=== PATIENT | male | born 1975 | race American Indian/Alaskan Native ===

== ENCOUNTER 2016-05-20 11:55 | Emergency (ER) | payer SELFPAY ==
[2016-05-20 12:21] VITALS: BP 124/78
[2016-05-20] MEDS ORDERED: VALIUM PO ONE (17:43)
[2016-05-20] MEDS ORDERED: TORADOL IM ONE (17:43)
--- NOTE | 2016-05-20 19:08 | Emergency Department Report ---
Entered by QING INTERIANO, acting as scribe for IVY WOODY PA. ED Dizziness HPI - General Chief Complaint: Extremity Problem,Nontraumatic Stated Complaint: BLURRED VISION/TINGLING/LIGHT HEADED Time Seen by Provider: 05/20/16 17:23 Source: patient Mode of arrival: Ambulatory Limitations: No Limitations - History of Present Illness Initial Comments: 41 year old male presents to the ED for evaluation of dizziness, nausea, and blurry vision that began this morning at approximately 09:00 while he was at work and lasted approximately 15 minutes. Patient reports symptoms improved after eating and dizziness and blurred vision have since resolved. He also c/o intermittent low back pain for 4-5 months. He states his current back pain in the ED radiates to his legs. He describes his pain in the ED as a tingling sensation and rates his discomfort as 8/10 in severity. He states at its worst, pain is a shooting pain that is 10/10 in severity. Pain worsens with movement and improves with rest. Denies bowel or bladder incontinence. Denies personal Hx of CVA. Denies headache, weakness, numbness, speech changes, chest pain, shortness of breath, abdominal pain, and vomiting. MD Complaint: dizziness -: Sudden, This morning Time: 09:00 Timing: sudden onset, now resolved (after eating) Description: lightheadedness History of Same: No History of Trauma: No Improves With: other (eating) Worsens With: nothing Associated Symptoms: denies: chest pain, confusion, fever/chills, shortness of breath, syncope, weakness - Related Data Previous Rx's Medication Instructions Recorded Last Taken Type oxyCODONE /ACETAMINOPHEN [Percocet 2 tab PO Q6H PRN #14 tablet 04/03/14 Unknown Rx 5/325 mg] Naproxen [Naprosyn] 500 mg PO BID #30 tablet 05/20/16 Unknown Rx methOCARBAMOL [Robaxin TAB] 500 mg PO BID #20 tab 05/20/16 Unknown Rx Allergies Allergy/AdvReac Type Severity Reaction Status Date / Time No Known Allergies Allergy Verified 03/29/14 12:49 ED Review of Systems Comment: All other systems reviewed and negative Constitutional: denies: chills, fever Eyes: vision change (blurry vision, since resolved) Respiratory: denies: shortness of breath Cardiovascular: denies: chest pain Gastrointestinal: nausea. denies: abdominal pain, vomiting Musculoskeletal: back pain (low back pain radiating to bilateral lower extremities, no injury) Neurological: denies: headache, weakness, numbness, paresthesias, confusion, abnormal gait ED Past Medical Hx - Past Medical History Previous Medical History?: Yes - Surgical History Past Surgical History?: Yes Hx Cholecystectomy: Yes - Social History Smoking Status: Never Smoker Substance Use Type: Alcohol, Marijuana - Medications Home Medications: Home Medications Medication Instructions Recorded Confirmed Last Taken Type oxyCODONE /ACETAMINOPHEN [Percocet 2 tab PO Q6H PRN #14 tablet 04/03/14 Unknown Rx 5/325 mg] Naproxen [Naprosyn] 500 mg PO BID #30 tablet 05/20/16 Unknown Rx methOCARBAMOL [Robaxin TAB] 500 mg PO BID #20 tab 05/20/16 Unknown Rx ED Physical Exam - General Limitations: No Limitations General appearance: other (The patient is well-developed and well-nourished. Patient is in NAD. ) - Head Head exam: Present: atraumatic, normocephalic - Eye Eye exam: Present: PERRL, EOMI Pupils: Present: normal accommodation - ENT ENT exam: Present: mucous membranes moist - Neck Neck exam: Present: normal inspection, full ROM (supple). Absent: meningismus, lymphadenopathy, thyromegaly - Respiratory Respiratory exam: Present: normal lung sounds bilaterally. Absent: respiratory distress, wheezes, rales, chest wall tenderness - Cardiovascular Cardiovascular Exam: Present: regular rate, normal rhythm, normal heart sounds. Absent: systolic murmur, diastolic murmur, rubs, gallop - GI/Abdominal GI/Abdominal exam: Present: soft, normal bowel sounds. Absent: distended, tenderness, guarding, rebound - Extremities Exam Extremities exam: Present: normal inspection, full ROM - Back Exam Back exam: Present: normal inspection, full ROM, muscle spasm (bilateral low back), paraspinal tenderness (bilateral low back). Absent: vertebral tenderness - Expanded Back Exam Expanded Back exam: Sciatic Notch Tenderness: Left, Negative Straight Leg Raising: Left, Right - Neurological Exam Neurological exam: Present: alert, oriented X3, CN II-XII intact, normal gait, other (Symmetrical strength and sensation. Cerebellar testing normal. GCS score of 15.). Absent: motor sensory deficit - Expanded Neurological Exam Expanded Patient oriented to: Present: person, place, time Speech: Present: fluid speech Cranial nerves: EOM's Intact: Normal, Facial Sensation: Normal Cerebellar function: Finger to Nose: Normal, Romberg: Normal Upper motor neuron: Pronator Drift: Normal Motor strength exam: RUE: 5, LUE: 5, RLE: 5, LLE: 5 Best Eye Response (Margo): (4) open spontaneously Best Motor Response (Margo): (6) obeys commands Best Verbal Response (Fisher): (5) oriented Margo Total: 15 - Psychiatric Psychiatric exam: Present: normal affect, normal mood - Skin Skin exam: Present: warm, dry, intact ED Course Vital Signs 05/20/16 05/20/16 12:05 18:46 Temperature 98.1 F Pulse Rate 99 H Respiratory 18 16 Rate Blood Pressure 124/78 O2 Sat by Pulse 100 Oximetry ED Medical Decision Making - Lab Data Vital Signs 05/20/16 05/20/16 12:05 18:46 Temperature 98.1 F Pulse Rate 99 H Respiratory 18 16 Rate Blood Pressure 124/78 O2 Sat by Pulse 100 Oximetry - Medical Decision Making 41-year-old male presents today with lower back pain radiating down his left leg as well as one episode of lightheadedness, blurred vision that resolved post meal. Patient was given Valium and Toradol and reported symptomatic relief. He has been provided with a referral for neurologist and orthopedic. Patient is in no acute distress at this time. He will be discharged home and is encouraged to follow up with a primary care provider. He will be sent home on Robaxin and Naprosyn and is encouraged to return to the emergency room for any worsening symptoms. ED Disposition Clinical Impression: Low back pain Qualifiers: Chronicity: acute Back pain laterality: bilateral Sciatica presence: with sciatica Sciatica laterality: sciatica of left side Qualified Code(s): M54.42 - Lumbago with sciatica, left side Disposition: DISCHARGED TO HOME OR SELFCARE Is pt being admited?: No Does the pt Need Aspirin: No Condition: Stable Instructions: Sciatica (ED) Additional Instructions: Follow-up with primary care provider. Return to the emergency department if symptoms worsen. Prescriptions: methOCARBAMOL [Robaxin TAB] 500 mg PO BID #20 tab Naproxen [Naprosyn] 500 mg PO BID #30 tablet Referrals: PRIMARY CARE, [Primary Care Provider] - 3-5 Days SERAFIN REYNAGA MD [Staff Physician] - 3-5 Days SILAS GARCIA MD [Staff Physician] - 3-5 Days Forms: Work/School Release Form(ED), Accompanied Note Time of Disposition: 19:06 This documentation as recorded by the sendyibLAISHA patton REBEKAH,accurately reflects the service I personally performed and the decisions made by ,IVY WOODY PA.
== END 2016-05-20 19:19 | disposition home or self-care (01) ==
LOC: ED 11:55
DX: M54.42 Lumbago with sciatica, left side (principal); R42 Dizziness and giddiness; R11.0 Nausea; H53.8 Other visual disturbances; F12.10 Cannabis abuse, uncomplicated
CPT/HCPCS: 82962; 96372; 99283; J1885

== ENCOUNTER 2018-12-04 10:49 | Emergency (ER) | payer OTHER ==
--- NOTE | 2018-12-04 12:55 | Emergency Department Report ---
ED Lower Extremity HPI - General Chief Complaint: Extremity Injury, Lower Stated Complaint: FOOT PAIN Time Seen by Provider: 12/04/18 12:13 Source: patient Mode of arrival: Ambulatory Limitations: No Limitations - History of Present Illness Initial Comments: This is a 43-year-old -[place] Citizen male who presents to the emergency room with swelling and pain to left dorsal foot for 4 days. Patient states he went to [facility] on last and did a lot of walking when he woke up on Sunday morning he noticed swelling to left foot and pain with weightbearing. He is currently taking NSAIDs with minimal improvement of symptoms. Patient states he had to use crutches to aid in ambulation. He denies recent injury, numbness or tingling, weakness, or paresthesia. MD Complaint: foot injury (left) Onset/Timin -: days(s) Injury: Foot: Left (dorsal ) Type of Injury: unknown Place: home Severity: moderate Severity scale (0 -10): 7 Improves With: immobilization Worsens With: weight bearing, movement Context: walking Associated Symptoms: swelling, able to partially bear weight, ambulatory. denies: snap/pop sensation, numbness, tingling Treatments Prior to Arrival: NSAIDS - Related Data Previous Rx's Medication Instructions Recorded Last Taken Type oxyCODONE /ACETAMINOPHEN [Percocet 2 tab PO Q6H PRN #14 tablet 04/03/14 Unknown Rx 5/325 mg] Naproxen [Naprosyn] 500 mg PO BID #30 tablet 05/20/16 Unknown Rx methOCARBAMOL [Robaxin TAB] 500 mg PO BID #20 tab 05/20/16 Unknown Rx Cyclobenzaprine [Flexeril] 10 mg PO BID PRN #20 tablet 02/14/18 Unknown Rx Menthol/Camphor [[place] 1 applicator TP QID PRN #1 tube 02/14/18 Unknown Rx Ointment] Naproxen 500 mg PO BID PRN #30 tablet 02/14/18 Unknown Rx Ibuprofen [Motrin 800 MG tab] 800 mg PO Q8HR PRN #20 tablet 12/04/18 Unknown Rx Sulfamethoxazole/Trimethoprim 1 each PO BID #14 tablet 12/04/18 Unknown Rx [Bactrim DS TAB] Allergies Allergy/AdvReac Type Severity Reaction Status Date / Time No Known Allergies Allergy Verified 01/25/15 12:49 ED Review of Systems ROS: Stated complaint: FOOT PAIN Other details as noted in HPI Constitutional: denies: chills, fever Respiratory: denies: cough, shortness of breath, wheezing Cardiovascular: denies: chest pain, palpitations Gastrointestinal: denies: abdominal pain, nausea, diarrhea Musculoskeletal: arthralgia (left foot). denies: back pain, joint swelling Skin: denies: rash, lesions Neurological: denies: headache, weakness, paresthesias Psychiatric: denies: anxiety, depression ED Past Medical Hx - Past Medical History Additional medical history: Obesity - Surgical History Hx Cholecystectomy: Yes - Social History Smoking Status: Never Smoker Substance Use Type: Marijuana - Medications Home Medications: Home Medications Medication Instructions Recorded Confirmed Last Taken Type oxyCODONE /ACETAMINOPHEN [Percocet 2 tab PO Q6H PRN #14 tablet 04/03/14 Unknown Rx 5/325 mg] Naproxen [Naprosyn] 500 mg PO BID #30 tablet 05/20/16 Unknown Rx methOCARBAMOL [Robaxin TAB] 500 mg PO BID #20 tab 05/20/16 Unknown Rx Cyclobenzaprine [Flexeril] 10 mg PO BID PRN #20 tablet 02/14/18 Unknown Rx Menthol/Camphor [[place] 1 applicator TP QID PRN #1 tube 02/14/18 Unknown Rx Ointment] Naproxen 500 mg PO BID PRN #30 tablet 02/14/18 Unknown Rx Ibuprofen [Motrin 800 MG tab] 800 mg PO Q8HR PRN #20 tablet 12/04/18 Unknown Rx Sulfamethoxazole/Trimethoprim 1 each PO BID #14 tablet 12/04/18 Unknown Rx [Bactrim DS TAB] ED Physical Exam - General Limitations: No Limitations General appearance: alert, in no apparent distress, obese (morbidly) - Respiratory Respiratory exam: Present: normal lung sounds bilaterally. Absent: respiratory distress - Cardiovascular Cardiovascular Exam: Present: regular rate, normal rhythm. Absent: systolic murmur, diastolic murmur, rubs, gallop - GI/Abdominal GI/Abdominal exam: Present: soft, normal bowel sounds. Absent: distended, tenderness, guarding, rebound, rigid - Extremities Exam Extremities exam: Present: normal capillary refill. Absent: pedal edema, calf tenderness - Expanded Lower Extremity Exam Left Hip exam: Present: normal inspection, full ROM Upper Leg exam: Present: normal inspection, full ROM Knee exam: Present: normal inspection, full ROM Lower Leg exam: Present: normal inspection, full ROM Ankle exam: Present: normal inspection, full ROM Foot/Toe exam: Present: full ROM, tenderness (tenderness and swelling, proximal, dorsal), swelling, erythema (1-2 cm dorsal foot). Absent: abrasion, laceration, ecchymosis, deformity, crepidus, amputation, puncture wound, foreign body, calcaneal tenderness, tenderness at base of 5th metatarsal, nail avulsion, subungual hematoma Neuro vascular tendon exam: Present: no vascular compromise Gait: Positive: observed and limited by pain - Neurological Exam Neurological exam: Present: alert, oriented X3, normal gait - Psychiatric Psychiatric exam: Present: normal affect, normal mood - Skin Skin exam: Present: warm, dry, intact, normal color. Absent: rash ED Course Vital Signs 12/04/18 11:00 Temperature 98.4 F Respiratory 18 Rate Blood Pressure 152/65 O2 Sat by Pulse 97 Oximetry ED Lower Extremity MDM - Radiology Data Radiology results: report reviewed Left foot, 3 views INDICATION: swelling and pain. COMPARISON: None. IMPRESSION: No acute osseous or soft tissue abnormality. No significant DJD. - Medical Decision Making Patient was examined by me. Patient is nontoxic appearing and stable. Vitals are normal. Obtained x-ray of left foot with no acute radiographic findings. Given analgesics while in the ER. There is a 2-3 cm erythematous area to dorsal left foot with moderate swelling. The area was marked and patient instructed to monitor worsening of symptoms. Physical findings susceptible of acute cellulitis. Start Bactrim and ibuprofen for pain. Patient informed of results. Instructed to take Tylenol or ibuprofen for pain. Follow up with PCP or return to the ER with worsening symptoms. Patient discharged home in stable condition. Critical care attestation.: If time is entered above; I have spent that time in minutes in the direct care of this critically ill patient, excluding procedure time. ED Disposition Clinical Impression: Morbid obesity with BMI of 45.0-49.9, adult, Acute pain of left foot, Cellulitis of foot without toes, left Disposition: - TO HOME OR SELFCARE Is pt being admited?: No Does the pt Need Aspirin: No Condition: Stable Instructions: Cellulitis (ED), Arthralgia (ED) Additional Instructions: Complete full course of antibiotics as prescribed. Avoid drinking alcohol while taking antibiotics and for up to 20 from her recent completion. The ibuprofen pain medication every 6-8 hours as needed for pain. Elevate foot while sitting. Follow up with a primary care doctor in 2-3 days or return to the emergency room with worsening symptoms. Prescriptions: Sulfamethoxazole/Trimethoprim [Bactrim DS TAB] 1 each PO BID #14 tablet Ibuprofen [Motrin 800 MG tab] 800 mg PO Q8HR PRN #20 tablet PRN Reason: Pain , Severe (7-10) Referrals: [facility] [Outside] - 3-5 Days [facility] [Outside] - 3-5 Days [facility] [Outside] - 3-5 Days Forms: Work/School Release Form(ED) Time of Disposition: 16:29
[2018-12-04] MEDS ORDERED: KETOROLAC 30 MG/1 ML INJ IM ONE (14:32)
--- NOTE | 2018-12-04 15:54 | XRay Report ---
Left foot, 3 views INDICATION: swelling and pain. COMPARISON: None. IMPRESSION: No acute osseous or soft tissue abnormality. No significant DJD. Signer Name: Corky Isbell Jr, MD Signed: 12/04/2018 3:49 PM Workstation Name: [id number]
[2018-12-04 17:26] VITALS: BP 120/90
== END 2018-12-04 17:28 | disposition home or self-care (01) ==
LOC: ED 10:49
DX: L03.116 Cellulitis of left lower limb (principal); E66.01 Morbid (severe) obesity due to excess calories; F12.10 Cannabis abuse, uncomplicated; Z90.49 Acquired absence of other specified parts of digestive tract
CPT/HCPCS: 73630; 96372; 99283; J1885

== ENCOUNTER 2018-12-26 16:52 | Emergency (ER) | payer OTHER ==
[2018-12-26 17:43] VITALS: BP 142/86
--- NOTE | 2018-12-26 18:05 | Emergency Department Report ---
ED Male HPI - General Chief complaint: Urogenital-Male Stated complaint: STD TREATMENT Time Seen by Provider: 12/26/18 17:35 Source: patient Mode of arrival: Ambulatory Limitations: No Limitations - History of Present Illness Initial comments: penile discharge and pain. reports having vaginal discharge. was confirmed to have STD a couple weeks ago and was treated. her sympotms returned when she had sex ith mr. Dewitt. Complaint: penile discharge Location: penis Radiation: none Severity: mild Quality: dull Consistency: constant Improves with: none Worsens with: none discharge - Related Data Sexually active: No Previous Rx's Medication Instructions Recorded Last Taken Type oxyCODONE /ACETAMINOPHEN [Percocet 2 tab PO Q6H PRN #14 tablet 04/03/14 Unknown Rx 5/325 mg] Naproxen [Naprosyn] 500 mg PO BID #30 tablet 05/20/16 Unknown Rx methOCARBAMOL [Robaxin TAB] 500 mg PO BID #20 tab 05/20/16 Unknown Rx Cyclobenzaprine [Flexeril] 10 mg PO BID PRN #20 tablet 02/14/18 Unknown Rx Menthol/Camphor [[place] 1 applicator TP QID PRN #1 tube 02/14/18 Unknown Rx Ointment] Naproxen 500 mg PO BID PRN #30 tablet 02/14/18 Unknown Rx Ibuprofen [Motrin 800 MG tab] 800 mg PO Q8HR PRN #20 tablet 12/04/18 Unknown Rx Sulfamethoxazole/Trimethoprim 1 each PO BID #14 tablet 12/04/18 Unknown Rx [Bactrim DS TAB] Azithromycin [Zithromax TAB] 1,000 mg PO ONCE #2 tablet 12/26/18 Unknown Rx ceFIXime [Cefixime] 400 mg PO ONCE #1 capsule 12/26/18 Unknown Rx metroNIDAZOLE [Flagyl] 500 mg PO ONCE #4 tab 12/26/18 Unknown Rx Allergies Allergy/AdvReac Type Severity Reaction Status Date / Time No Known Allergies Allergy Verified 12/26/18 16:55 ED Review of Systems ROS: Stated complaint: STD TREATMENT Other details as noted in HPI Comment: All other systems reviewed and negative ED Past Medical Hx - Past Medical History Previous Medical History?: No Additional medical history: Obesity - Surgical History Hx Cholecystectomy: Yes - Social History Smoking Status: Unknown if ever smoked Substance Use Type: None - Medications Home Medications: Home Medications Medication Instructions Recorded Confirmed Last Taken Type oxyCODONE /ACETAMINOPHEN [Percocet 2 tab PO Q6H PRN #14 tablet 04/03/14 Unknown Rx 5/325 mg] Naproxen [Naprosyn] 500 mg PO BID #30 tablet 05/20/16 Unknown Rx methOCARBAMOL [Robaxin TAB] 500 mg PO BID #20 tab 05/20/16 Unknown Rx Cyclobenzaprine [Flexeril] 10 mg PO BID PRN #20 tablet 02/14/18 Unknown Rx Menthol/Camphor [[place] 1 applicator TP QID PRN #1 tube 02/14/18 Unknown Rx Ointment] Naproxen 500 mg PO BID PRN #30 tablet 02/14/18 Unknown Rx Ibuprofen [Motrin 800 MG tab] 800 mg PO Q8HR PRN #20 tablet 12/04/18 Unknown Rx Sulfamethoxazole/Trimethoprim 1 each PO BID #14 tablet 12/04/18 Unknown Rx [Bactrim DS TAB] Azithromycin [Zithromax TAB] 1,000 mg PO ONCE #2 tablet 12/26/18 Unknown Rx ceFIXime [Cefixime] 400 mg PO ONCE #1 capsule 12/26/18 Unknown Rx metroNIDAZOLE [Flagyl] 500 mg PO ONCE #4 tab 12/26/18 Unknown Rx ED Physical Exam - General Limitations: No Limitations General appearance: alert, in no apparent distress - Head Head exam: Present: atraumatic, normocephalic - Eye Eye exam: Present: normal appearance, PERRL, EOMI Pupils: Present: normal accommodation - ENT ENT exam: Present: normal exam, normal orophraynx, mucous membranes moist - Neck Neck exam: Present: normal inspection, full ROM. Absent: tenderness, meningi smus, lymphadenopathy, thyromegaly - Respiratory Respiratory exam: Present: normal lung sounds bilaterally. Absent: respiratory distress, wheezes, rales, rhonchi - Cardiovascular Cardiovascular Exam: Present: regular rate, normal rhythm. Absent: systolic murmur, diastolic murmur, rubs, gallop - GI/Abdominal GI/Abdominal exam: Present: soft, normal bowel sounds. Absent: tenderness, guarding, rebound - Rectal Rectal exam: Present: deferred - Extremities Exam Extremities exam: Present: normal inspection, full ROM - Back Exam Back exam: Present: normal inspection - Neurological Exam Neurological exam: Present: alert, oriented X3 - Psychiatric Psychiatric exam: Present: normal affect, normal mood - Skin Skin exam: Present: warm, dry, intact, normal color. Absent: rash ED Course Vital Signs 12/26/18 17:41 Temperature 99 F Pulse Rate 105 H Respiratory 16 Rate Blood Pressure 142/86 O2 Sat by Pulse 97 Oximetry Critical care attestation.: If time is entered above; I have spent that time in minutes in the direct care of this critically ill patient, excluding procedure time. ED Disposition Clinical Impression: Dysuria, Possible exposure to STD Disposition: DC-01 TO HOME OR SELFCARE Is pt being admited?: No Does the pt Need Aspirin: No Condition: Stable Instructions: Sexually Transmitted Diseases (ED), Safe Sex (ED) Prescriptions: ceFIXime [Cefixime] 400 mg PO ONCE #1 capsule metroNIDAZOLE [Flagyl] 500 mg PO ONCE #4 tab Azithromycin [Zithromax TAB] 1,000 mg PO ONCE #2 tablet Referrals: [facility] [Outside] - 3-5 Days [facility] [Outside] - 3-5 Days
== END 2018-12-26 18:55 | disposition home or self-care (01) ==
LOC: ED 16:52
DX: R30.0 Dysuria (principal); N48.89 Other specified disorders of penis
CPT/HCPCS: 99282